=== PATIENT | female | born 2000 | race Caucasian/White ===

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

== ENCOUNTER 2024-03-23 08:05 | Emergency (ER) | payer OTHER, SELFPAY ==
[2024-03-23 08:05] VITALS: BP 142/97; PULSE 96; RESP 16; TEMP 35.7; O2SAT 100; BMI 26.6
--- NOTE | 2024-03-23 08:26 | CT_ITS ---
INDICATION: chest pain, history of Marfan''s EXAMINATION: CTA CHEST, ABDOMEN AND PELVIS WITH CONTRAST - TECHNIQUE: A CTA of the chest, abdomen, and pelvis is obtained with sagittal and coronal reconstructed MIP views. Three-dimensional surface rendered sequence of the thoracic and abdominal aorta was obtained. A radiation dose optimization technique was used for this scan. 100 mL of Isovue-370. Oral contrast: None. COMPARISON: None. FINDINGS: CT CHEST: THORACIC AORTA: No atheromatous disease, no aneurysmal changes or dissection. ABDOMINAL AORTA: No aneurysm or dissection. No significant atheromatous disease. The iliac arteries are unremarkable. LUNGS: The lungs are well-expanded without acute or chronic changes. No effusions or pneumothorax. MEDIASTINUM: The thyroid gland is normal. No mediastinal or hilar adenopathy. HEART: Heart is normal size. No pericardial effusion. No CAD. CT ABDOMEN AND PELVIS: LIVER: The liver enhances homogeneously. No masses identified. GALLBLADDER: The CBD is normal. Normal gallbladder. SPLEEN: Normal. PANCREAS: No masses or inflammation. ADRENAL GLANDS: Normal. KIDNEYS AND URETERS: The kidneys both enhance appropriately. There are normal size and shape. No hydronephrosis or nephrolithiasis. No renal masses or cysts. STOMACH: Normal. SMALL BOWEL: No abnormal distention of the small bowel. MESENTERY: No mesenteric inflammation. No ascites. COLON: No significant diverticulosis, masses or inflammation. The colon otherwise is normal. There is a large fatty ileocecal valve. APPENDIX: The appendix is visualized and normal. IVC: Normal. RETROPERITONEUM: No retroperitoneal lymphadenopathy. PELVIC STRUCTURES: Normal bladder. SOFT TISSUES ABDOMEN: The anterior abdominal wall is normal. SOFT TISSUE CHEST: The extrathoracic soft tissues are normal. BONES: No fractures or significant degenerative disease. CT/CTA Chst, Abd, Pel W and/or WO IMPRESSION: Normal contrast-enhanced CT of the chest. Normal contrast-enhanced CT of the abdomen and pelvis. Electronically Signed: Rodrick Montero MD at 9:38 EDT ,
--- NOTE | 2024-03-23 08:26 | EKG12_ITS ---
Test Reason : CP Blood Pressure : / mmHG Vent. Rate : 077 BPM Atrial Rate : 077 BPM P-R Int : 142 ms QRS Dur : 080 ms QT Int : 374 ms P-R-T Axes : 058 073 041 degrees QTc Int : 423 ms Normal sinus rhythm Normal ECG Confirmed by LLOYD HOBSON, JOSI ([id number]), slot editor NA MULLINS ([id number]) on 03/26/2024 11:32:51 AM Referred By: RU Confirmed By:JOSI DESAI MD
--- NOTE | 2024-03-23 08:37 | ED.VIS.CHEST ---
HPI History of Present Illness Chief Complaint: Chest Pain Detail of Chief Complaint: Chest pain Informant: patient Narrative Narrative: Patient presents with chest pain that started yesterday. Patient states that she had an initial pain that was sudden and sharp stabbing radiating to her left shoulder blade yesterday that lasted about 30 seconds or so and then resolved. Around 9 PM last night started having more continuous discomfort in her left chest. She is concerned because she has a history of Marfan's. Patient gets echocardiograms every year. Her last echo was about 6 months ago. Patient [place] recent travel or surgery. She is on an oral contraceptive. No history of PE or DVT. Pain is pleuritic. She denies any fever cough or hemoptysis. [facility] Medical History (Updated 03/23/24 @ 09:[address] Fernie Valerio DO) Marfan syndrome Home Medications drospirenone 3 mg-ethinyl estradiol 0.02 mg tablet 1 tab PO DAILY 10/23/19 [History Last Taken 03/22/24] albuterol sulfate 90 mcg/actuation aerosol inhaler 2 puff inhalation Q4H PRN PRN wheezing 03/23/24 [History Last Taken Unknown] spironolactone 100 mg tablet 100 mg PO BID 03/23/24 [History Last Taken 03/22/24] Allergy/AdvReac Type Severity Reaction Status Date / Time No Known Allergies Allergy Verified 03/23/24 08:05 Social History Smoking Status: Never smoker ROS ROS ED Review of Systems ROS Unobtainable: other Constitutional Constitutional ED: Reports lethargy; Denies chills, fever(s), sweats or weight loss Eyes Eyes: Denies blurry vision, change in vision or diplopia ENT ENT ED: Denies rhinorrhea or sore throat Cardiovascular Cardiovascular: Reports chest pain; Denies orthopnea or racing heartbeat Respiratory/Chest Respiratory/Chest: Denies cough, dyspnea, dyspnea on exertion, orthopnea or sputum Gastrointestinal Gastrointestinal: Denies abdominal pain, diarrhea, nausea or vomiting Genitourinary Genitourinary ED: Denies dysuria, hematuria or urinary frequency Musculoskeletal Musculoskeletal: Denies arthralgias, back pain, myalgias or neck pain Integumentary Denies abscess, Abrasions or rash Neurologic Neurologic: Denies headache(s) or weakness Psychiatric Psychiatric: Denies anxiety, depression or suicidal thoughts Endocrine Endocrinology: Denies polydipsia, polyphagia or polyuria Hematologic/Lymphatic Hematologic/Lymphatic: Denies easy bleeding, easy bruising or lymphadenopathy Allergic/Immunologic Allergic/Immunologic ED: Denies mouth swelling, tongue swelling or urticaria EXAM Physical Exam Const Vital Signs: 03/23/24 08:05 03/23/24 08:43 Temperature 96.3 F L Temperature Source Temporal Pulse Rate 96 Respiratory Rate 16 Respiratory Effort Normal Non-Labored Blood Pressure 142/97 H Blood Pressure Mean 112 Pulse Ox 100 Oxygen Delivery Method Room Air Positive well nourished and well developed General Appearance ED: well developed and NAD HEENT Reports TM's clear and moist mucous membranes normocephalic and atraumatic; Negative for trauma or tenderness Tympanic Membrane ED: Yes TM's clear Eyes PERRL and EOMs intact bilaterally General Eye ED: Negative for pale conjunctiva or scleral icterus Neck no lymphadenopathy, supple and no JVD General: Negative for tenderness Chest Wall inspection of chest normal and palpation of chest normal Chest: Negative for tenderness Resp normal respiratory effort and clear to auscultation bilaterally Effort and Inspection: Negative for respiratory distress or pain with movement Auscultation: Negative for rhonchi, wheezes or diminished lung sounds Cardio regular rate, regular rhythm, S1 normal heart sound, S2 normal heart sound and no murmurs Peripheral Pulses: pulses 2+ throughout GI normal to inspection, nondistended, normoactive bowel sounds, soft to palpation, non-tender, non-distended and no masses Back/Spine no CVA tenderness and no thoracic nor lumbar tenderness Extremity normal to inspection General Extremety ED: Negative for edema General Extremity: Negative for edema Neuro oriented x3, CN's II-XII intact bilaterally, no sensory deficits noted and gait normal Sensorium / Orientation: awake, alert, oriented to person, oriented to place and oriented to time Motor Exam: strength 5/5 throughout and strength abnormal Psych mental status grossly normal Skin no rashes or lesions noted and no wounds MDM MDM MDM Narrative Medical decision making narrative: Patient presents the emergency department with complaint of chest pain that started yesterday. Patient has history of Marfan syndrome. Last echo was 6 months ago and unremarkable by patient history. Patient had an IV line established. EKG obtained on arrival showed a sinus rhythm with ventricular rate of 77 bpm with no acute segment changes. No evidence of pericarditis. CBC with differential patient awakened at 4.1 with hemoglobin 14.5 and platelet count of 248. Chemistries unremarkable. Troponin was less than 3. CTA of the chest abdomen pelvis obtained was normal. At this point she rates her pain as a 4 out of 10. Clinically she looks well. She does not anything for pain for home. She is advised to follow-up with her cardiothoracic surgeon if symptoms persist. Advised to return if worsening pain, increasing shortness of breath, or condition worsening with etiology of her chest pain uncertain. Lab Data Attestation: I reviewed the patient's lab results. Labs: Laboratory Results - last 24 hr 03/23/24 08:50 WBC 4.1 L RBC 4.68 Hgb 14.5 Hct 41.4 MCV 88.5 MCH 31.0 MCHC 35.0 RDW Std Deviation 40.1 RDW Coeff of Cuate 12.4 Plt Count 248 MPV 9.2 Immature Gran % (Auto) 0.000 Neut % (Auto) 51.5 Lymph % (Auto) 37.7 [place] % (Auto) 6.9 Eos % (Auto) 3.2 Baso % (Auto) 0.7 Absolute Neuts (auto) 2.1 Absolute Lymphs (auto) 1.54 Nucleated RBC % 0 Sodium 139 Potassium 4.1 Chloride 110 H Carbon Dioxide 26.0 Anion Gap 3 L BUN 11 Creatinine 0.73 Estim Creat Clear Calc 141.59 Est GFR (MDRD) Af Amer 126 Est GFR (MDRD) Non-Af 104 BUN/Creatinine Ratio 15.0 Glucose 91 Calcium 8.7 Troponin I High Sens < 3 L Radiography Diagnostic Testing: Clinical Impression(s) from Imaging Studies Chest/Abdomen/Pelvis CTA 03/23/24 08:26 IMPRESSION: Normal contrast-enhanced CT of the chest. Normal contrast-enhanced CT of the abdomen and pelvis. Electronically Signed: Rodrick Montero MD at 9:38 EDT , EKG Initial EKG: Attestation: I personally reviewed and interpreted this EKG as follows: Comments: Sinus rhythm with rate of 77 bpm with no acute ST segment changes and no evidence for pericarditis. Discharge Plan Triage Chief Complaint: Chest Pain ED Provider: Fernie Valerio Dx/Rx/DC Orders Clinical Impression: Chest pain Instructions: ED Chest Pain, Uncertain Cause Prescriptions: No Action drospirenone-ethinyl estradiol 0.02-3( tablet 1 tab PO DAILY spironolactone 100 mg tablet 100 mg PO BID albuterol sulfate 90 mcg/actuation HFA aerosol inhaler 2 puff INHALATION Q4H PRN PRN (Reason: wheezing) Primary Care Provider: Jocelyne Galvan [employer]WORK ENGINEER Referrals: Ivan Luis MD [Non-Staff] - Activity Restrictions/Additional Instructions: Follow-up with your cardiothoracic surgeons if your symptoms persist. Return if worsening pain or shortness of breath or condition worsen anyway. Disposition Disposition: Home, Self Care
[2024-03-23] MEDS: 0.9% Normal Saline (1000mL) 1,000 ML 150 ML IV (08:51)
[2024-03-23 09:00] LABS: Absolute Lymphocyte Count 1.54 X10^3/uL (0.83-4.51); Absolute Neutrophil Count 2.1 X10^3/uL (2.0-7.7); Basophil# 0.03 X10^3/uL; Basophil% 0.7 % (0-1); Eosinophil# 0.13 X10^3/uL; Eosinophils% 3.2 % (0-5); Hematocrit 41.4 % (37-47); Hemoglobin 14.5 g/dL (12.0-15.0); Lymphocyte # 1.54 X10^3/ul (0.83-4.51); Lymphocyte % 37.7 % (19-41); Mean Corpuscular Volume 88.5 fL (81-99); Mean Platelet Vol. 9.2 fl (6.2-12.0); Monocyte# 0.28 X10^3/uL; Monocyte% 6.9 % (0-10); NRBC Flagged by Analyzer 0 % (0-5); Neutrophil % 51.5 % (47-70); Platelet Count 248 K/mm3 (150-450); RBC Distribution Width CV 12.4 % (11.6-14.6); RBC Distribution Width SD 40.1 fl (35.1-43.9); Red Blood Count 4.68 M/mm3 (4.2-5.4); White Blood Count 4.1 K/mm3 (4.4-11.0)
[2024-03-23 09:27] LABS: Anion Gap 3 (5-15); BUN 11 mg/dL (7-18); Calcium,Total 8.7 mg/dL (8.5-10.1); Chloride 110 mmol/L (98-107); Creatinine, Serum 0.73 mg/dL (0.55-1.02); EST Glomerular Filtration Rate 104 mL/min (>60); Est Glom Filt Rate - Afr Amer 126 mL/min (>60); Estimated Creatinine Clearance 141.59 ml/min; Glucose 91 mg/dL (74-106); Potassium 4.1 mmol/L (3.5-5.1); Sodium Level 139 mmol/L (136-145); Troponin-I HS < 3 pg/mL (3.0-54.0)
[2024-03-23 10:00] VITALS: BP 108/67; PULSE 76; RESP 16; O2SAT 98
[2024-03-23 10:11] VITALS: BP 108/67; PULSE 76; RESP 16; TEMP 36.6; O2SAT 98
== END 2024-03-23 10:12 | disposition home or self-care (01) ==
PROVIDERS: Emergency Provider Emergency Medicine; PCP Nurse Practitioner; Visit Provider Emergency Medicine
DX: R07.9 Chest pain, unspecified (principal); Q87.40 Marfan syndrome, unspecified
CPT/HCPCS: 71275; 74174; 80048; 84484; 85025; 93005; 96360; 99285; J7030; Q9967; A4216